=== PATIENT | male | born 1950 | race Hispanic/Latino ===

== ENCOUNTER → 2019-05-27 | Outpatient (CLI) | payer OTHER ==
[~2019-05-27] VITALS: Ht 170.2 cm; Wt 79.4 kg
[~2019-05-27] MED LIST: ASPI-1005 PO; ATOR40TA71 PO; CARV6.25 PO; CHOL200074 PO; CLOP75TA14 PO; FURO20TA4 PO; GLIP10TA9 PO; ISOS30TA6 PO; LISI10TA7 PO; LORA10TA7 PO; METF-444 PO; METF-446 PO; NITR100C9 PO; OMEP20CA4 PO; REGADENOSON 0.4 MG/5 ML PF SYG IVP ONE; REGADENOSON 0.4 MG/5 ML PF SYG IVP SCH; SITA100T12 PO; SPIR25TA6 PO; VITAMIN B12 PO
== END | disposition home or self-care (01) ==
LOC: SHCH 08:28
PROVIDERS: ATTEND Internal Medicine Cardiovascular Disease
DX: R07.9 Chest pain, unspecified (principal); I25.5 Ischemic cardiomyopathy
CPT/HCPCS: 78452; 93017; 96374; A9500 ×2; J2785

== ENCOUNTER 2020-08-03 09:54 | Inpatient (IN) | payer OTHER ==
[~2020-08-03] VITALS: Ht 172.7 cm; Wt 73.8 kg
[~2020-08-03 09:54] MED LIST changes: -REGADENOSON 0.4 MG/5 ML PF SYG IVP ONE; -REGADENOSON 0.4 MG/5 ML PF SYG IVP SCH
[2020-08-03] MEDS ORDERED: ASPIRIN 325 MG TABLET ONE (10:12)
[2020-08-03 10:52] LABS: BASOPHILS % (AUTO) 0.7 % (0.0-5.0); EOSINOPHILS % (AUTO) 6.3 % (0.0-8.0); HEMATOCRIT 32.7 % (42-54); LYMPHOCYTES % (AUTO) 17.4 % (21.0-51.0); MEAN CORPUSCULAR HEMOGLOBIN 33.4 pg (27.0-33.0); MEAN CORPUSCULAR HGB CONC 35.2 g/dL (32.0-36.0); MEAN CORPUSCULAR VOLUME 95.1 fL (79-99); MONOCYTES % (AUTO) 7.3 % (3.0-13.0); NEUTROPHILS % (AUTO) 68.2 % (40.0-77.0); PLATELET COUNT (AUTO) 185 K/uL (130-400); RED BLOOD CELL COUNT(AUTO) 3.44 MIL/uL (4.50-6.20); RED CELL DISTRIBUTION WIDTH 12.4 % (11.0-15.5)
[2020-08-03 11:10] LABS: INR 0.94 (0.85-1.15); PARTIAL THROMBOPLASTIN TIME 26.8 SEC (26.3-35.5); PROTHROMBIN TIME 10.2 SEC (9.6-11.6)
[2020-08-03 11:33] LABS: ALBUMIN 3.9 g/dL (3.5-5.0); BILIRUBIN,TOTAL 0.7 mg/dL (0.2-1.0); CREATININE 1.6 mg/dL (0.5-1.5); POTASSIUM 4.8 mmol/L (3.5-5.1); TOTAL PROTEIN, SERUM 7.8 g/dL (6.0-8.3)
[2020-08-03] MEDS ORDERED: NITROGLYCERIN 1GM/1 INCH PACKET TD ONE ×2 (11:49→20:34)
[2020-08-03] MEDS ORDERED: MORPHINE SULFATE 2 MG/ML 1ML SYG IVP PRN (13:45)
[2020-08-03] MEDS ORDERED: LOPERAMIDE 1 MG/7.5 ML UDCUP PO PRN (13:45)
[2020-08-03] MEDS ORDERED: LACTULOSE 20 GM/30 ML UDCUP PO PRN (13:45)
[2020-08-03] MEDS ORDERED: ONDANSETRON HCL 4 MG/2 ML VIAL IVP PRN (13:45)
[2020-08-03] MEDS ORDERED: ACETAMINOPHEN 325 MG TAB PO PRN (13:45)
[2020-08-03] MEDS: NITROGLYCERIN 1GM/1 INCH PACKET TD SCH ×2 (13:45→21:45)
[2020-08-03] MEDS ORDERED: ZOLPIDEM TARTRATE 5 MG TAB PO PRN (13:45)
[2020-08-03] MEDS ORDERED: DEXTROSE 50%-WATER 50 ML DISP.SYRIN IV PRN (13:45)
[2020-08-03] MEDS ORDERED: DIPHENHYDRAMINE HCL 25 MG CAPSULE PO PRN (13:45)
[2020-08-03] MEDS ORDERED: GLUCAGON 1MG KIT 1 MG ML IM PRN (13:45)
[2020-08-03 16:13] LABS: APPEARANCE,URINE Clear (CLEAR); BILIRUBIN,URINE Negative (NEGATIVE); COLOR,URINE Yellow (YELLOW); GLUCOSE, URINE (UA) Negative (NEGATIVE); KETONES,URINE Negative (NEGATIVE); LEUKOCYTE ESTERASE ,URINE Negative (NEGATIVE); NITRATE,URINE Negative (NEGATIVE); OCCULT BLOOD,URINE Negative (NEGATIVE); PH,URINE 5.5 (5.0-8.0); PROTEIN,URINE Negative (NEGATIVE); UROBILINOGEN,URINE 0.2 mg/dL (0.2-1.0)
[2020-08-03] MEDS: INSULIN HUMULIN R 100 UNIT/ML 3ML SQ SCH ×2 (16:30→21:00)
[2020-08-03] MEDS ORDERED: MORPHINE SULFATE 2 MG/ML 1ML SYG ONE (19:32)
[2020-08-03] MEDS ORDERED: FAMOTIDINE 20MG TAB 20 MG TAB ONE (20:26)
[2020-08-03] MEDS ORDERED: CARVEDILOL 3.125 MG TABLET PO ONE (20:26)
[2020-08-03] MEDS ORDERED: ENOXAPARIN SODIUM 40 MG/0.4 ML SYRINGE SQ ONE (20:34)
[2020-08-03] MEDS: FAMOTIDINE 20MG TAB 20 MG TAB PO SCH (21:00)
[2020-08-03] MEDS: ENOXAPARIN SODIUM 40 MG/0.4 ML SYRINGE SQ SCH (21:00)
[2020-08-03] MEDS ORDERED: CARVEDILOL 3.125 MG TABLET PO SCH (21:00)
[2020-08-04] VITALS (9 sets, daily range): BP systolic 103–163; BP diastolic 59–78
[2020-08-04] MEDS ORDERED: ASPI-1146 PO (00:40)
[2020-08-04] MEDS ORDERED: ONDA8TAB12 PO (00:40)
[2020-08-04] MEDS ORDERED: LOSA25TA41 PO (00:40)
[2020-08-04] MEDS ORDERED: FERR324T PO (00:40)
[2020-08-04 01:48] LABS: HEMATOCRIT 30.8 % (42-54); MEAN CORPUSCULAR HEMOGLOBIN 32.6 pg (27.0-33.0); MEAN CORPUSCULAR HGB CONC 34.1 g/dL (32.0-36.0); MEAN CORPUSCULAR VOLUME 95.7 fL (79-99); RED BLOOD CELL COUNT(AUTO) 3.22 MIL/uL (4.50-6.20); RED CELL DISTRIBUTION WIDTH 12.4 % (11.0-15.5); WHITE BLOOD COUNT (AUTO) 6.4 K/uL (4.8-10.8)
[2020-08-04 02:19] LABS: ALBUMIN 3.5 g/dL (3.5-5.0); BILIRUBIN,TOTAL 0.7 mg/dL (0.2-1.0); CREATININE 1.4 mg/dL (0.5-1.5); MAGNESIUM 1.5 mg/dL (1.80-2.40); PHOSPHORUS 3.8 mg/dL (2.5-4.9); POTASSIUM 4.4 mmol/L (3.5-5.1); TOTAL PROTEIN, SERUM 7.4 g/dL (6.0-8.3)
[2020-08-04] MEDS ORDERED: MAGNESIUM 2GM PREMIX 50ML 50 ML IV PRN (03:15)
[2020-08-04] MEDS: MAGNESIUM 2GM PREMIX 50ML 50 ML IV PRN (03:18)
[2020-08-04] MEDS: NITROGLYCERIN 1GM/1 INCH PACKET TD SCH ×3 (03:54→20:59)
[2020-08-04] MEDS: INSULIN HUMULIN R 100 UNIT/ML 3ML SQ SCH ×4 (06:10→21:00)
[2020-08-04] MEDS: FAMOTIDINE 20MG TAB 20 MG TAB PO SCH ×2 (08:56→20:58)
[2020-08-04] MEDS: ISOSORBIDE MONO 30MG TAB SR PO SCH (08:56)
[2020-08-04] MEDS: SPIRONOLACTONE 25 MG TAB PO SCH (08:56)
[2020-08-04] MEDS: ASPIRIN 81MG TAB.CHEW PO SCH (08:56)
[2020-08-04] MEDS: LOSARTAN 50 MG TABLET PO SCH (08:57)
[2020-08-04] MEDS: CYANOCOBALAMIN (VITAMIN B-12) 1,000 MCG TABLET PO SCH (08:57)
[2020-08-04] MEDS: ATORVASTATIN CALCIUM 40 MG TABLET PO SCH (08:57)
[2020-08-04] MEDS: CLOPIDOGREL BISULFATE 75 MG TAB PO SCH (08:57)
[2020-08-04] MEDS: CARVEDILOL 6.25 MG TABLET PO SCH ×2 (08:58→20:58)
[2020-08-04] MEDS: LISINOPRIL 10 MG TABLET PO SCH (08:58)
[2020-08-04] MEDS: ENOXAPARIN SODIUM 40 MG/0.4 ML SYRINGE SQ SCH ×2 (08:59→20:59)
--- NOTE | 2020-08-04 10:52 | NUR ---
DR. OWEN PER DR. OWEN PT WILL BE GOING FOR A STRESS TEST TOMORROW. PT WILL BE NPO TOMORROW AFTER MIDNIGHT
[2020-08-04] MEDS: FERROUS GLUCONATE 325 MG TABLET PO SCH (12:02)
[2020-08-04] MEDS: FUROSEMIDE 20 MG TABLET PO SCH (12:02)
--- NOTE | 2020-08-04 17:03 | NUR ---
RAE NOTE/IA UNABLE TO MEET WITH PATIENT, NEXT OF KIN CALLED, SERGE WELLS. PER DAUGHTER, HAS POA AND WILL BRING FORMS, PATIENT LIVES WITH SPOUSE, IS INDEPENDENT WITH ADLS, NO USE OF DME, AND FEELS SAFE FOR HIM TO RETURN ONCE DISCHARGED. Addendum: 08/04/20 at 1705 by SONI GRANDA RN CM Amended: Links added.
--- NOTE | 2020-08-04 17:05 | NUR ---
ADVANCE DIRECTIVES/POA DAUGHTER, SERGE, BROUGHT MEDICAL POWER OR SALVAGE ENGINEERING TECHNICIAN PAPERWORK. FLAGGED IN CHART, PRIMARY NURSE, JOVANNY MCKINLEY, MADE AWARE.
--- NOTE | 2020-08-04 19:25 | NUR ---
SUSAN DRAPER TAKEN DOWN BY [employer] FOR SUSAN. Addendum: 08/05/20 at 0128 by MARY JANE OJEDA RN RN Amended: Links added.
[2020-08-04] MEDS: **HM** VIT D3 2000 UNITS PO SCH (21:00)
--- NOTE | 2020-08-04 21:00 | NUR ---
MEDS SHIFT ASSESSMENT DONE, PLEASE REFER TO CHART. DUE MEDS ADMINISTERED, TOLERATED WELL. CALL LIGHT WITHIN REACH. WILL MONITOR PT. Addendum: 08/05/20 at 0138 by MARY JANE OJEDA RN RN Amended: Links added.
--- NOTE | 2020-08-05 02:00 | NUR ---
ROUNDS PT AWAKENED WHEN [employer] ENTERED ROOM. DENIES ANY CONCERNS AT THIS TIME. NO DISTRESS NOTED. KEPT COMFORTABLE IN BED. CALL LIGHT WITHIN REACH. WILL MONITOR PT.
[2020-08-05 03:45] VITALS: BP 104/58
[2020-08-05] MEDS: NITROGLYCERIN 1GM/1 INCH PACKET TD SCH ×3 (05:06→21:45)
--- NOTE | 2020-08-05 05:10 | NUR ---
MEDS PT ALREADY AWAKE. NO CONCERNS VERBALIZED. DUE MEDS ADMINISTERED. KEPT RESTED AND COMFORTABLE IN BED. FOR MORE CARE.
[2020-08-05] MEDS: INSULIN HUMULIN R 100 UNIT/ML 3ML SQ SCH ×4 (05:43→20:17)
[2020-08-05] MEDS: MAGNESIUM 2GM PREMIX 50ML 50 ML IV PRN (06:22)
[2020-08-05 08:17] VITALS: BP 125/62
[2020-08-05] MEDS: ASPIRIN 81MG TAB.CHEW PO SCH (08:33)
[2020-08-05] MEDS: FAMOTIDINE 20MG TAB 20 MG TAB PO SCH ×2 (08:33→20:15)
[2020-08-05] MEDS: CLOPIDOGREL BISULFATE 75 MG TAB PO SCH (08:33)
[2020-08-05] MEDS: CARVEDILOL 6.25 MG TABLET PO SCH ×2 (08:34→20:16)
[2020-08-05] MEDS: ATORVASTATIN CALCIUM 40 MG TABLET PO SCH (08:34)
[2020-08-05] MEDS: CYANOCOBALAMIN (VITAMIN B-12) 1,000 MCG TABLET PO SCH (08:34)
[2020-08-05] MEDS: FUROSEMIDE 20 MG TABLET PO SCH (08:35)
[2020-08-05] MEDS: SPIRONOLACTONE 25 MG TAB PO SCH (08:38)
[2020-08-05] MEDS: LISINOPRIL 10 MG TABLET PO SCH (08:38)
[2020-08-05] MEDS: ISOSORBIDE MONO 30MG TAB SR PO SCH (08:39)
[2020-08-05] MEDS: LOSARTAN 50 MG TABLET PO SCH (08:39)
[2020-08-05] MEDS: ENOXAPARIN SODIUM 40 MG/0.4 ML SYRINGE SQ SCH ×2 (10:12→20:16)
[2020-08-05] MEDS ORDERED: REGADENOSON 0.4 MG/5 ML PF SYG IVP SCH (10:30)
--- NOTE | 2020-08-05 10:37 | NUR ---
PER REPORT IN AM NURSE STATED LEXISCAN WAS DONE PT ATE HIS BREAKFAST THIS AM. LEXISCAN CAN'T BE DONE TODAY UNTIL TOMORROW.
[2020-08-05] MEDS: FERROUS GLUCONATE 325 MG TABLET PO SCH (11:55)
[2020-08-05 12:26] VITALS: BP 114/82
[2020-08-05 16:00] VITALS: BP 108/59
--- NOTE | 2020-08-05 19:15 | NUR ---
REPORT RECEIVED REPORT FROM JOVANNY MCKINLEY AND GUN STOCK MAKER WAS INFORMED THAT LEXISCAN WAS NOT DONE LAST NIGHT BUT SINCE PT ATE BREAKFAST, TEST WILL BE DONE IN AM. INFORMED JOVANNY THAT PT WAS TAKEN DOWN FROM [facility] LAST NIGHT AND WHEN TECH BROUGHT PT UP GUN STOCK MAKER WAS INFORMED THAT TEST WAS DONE. PER TEST RESULTS IN THE COMPUTER, IT WAS LABELED TAKEN. NOBODY FROM THE LEXISCAN DEPARTMENT INFORMED GUN STOCK MAKER THAT LEXISCAN WAS PARTIALLY DONE.
[2020-08-05] MEDS ORDERED: MAG HYDROX/AL HYDROX/SIMETH ES 30 ML SUSP UDCUP PO PRN (19:30)
[2020-08-05] MEDS ORDERED: MAG HYDROX/AL HYDROX/SIMETH ES 30 ML SUSP UDCUP PO SCH (19:30)
[2020-08-05 20:02] VITALS: BP 149/74
[2020-08-05] MEDS: **HM** VIT D3 2000 UNITS PO SCH (20:17)
--- NOTE | 2020-08-05 20:20 | NUR ---
MEDS SHIFT ASSESSMENT DONE, PLEASE REFER TO CHART. DUE MEDS ADMINISTERED, TOLERATED WELL. INSTRUCTED TO BE NPO FOR SUSAN TOMORROW. VERBALIZES UNDERSTANDING. KEPT RESTED AND COMFORTABLE IN BED. CALL LIGHT WITHIN REACH. WILL MONITOR PT. Addendum: 08/05/20 at 2210 by MARY JANE OJEDA RN RN Amended: Links added.
--- NOTE | 2020-08-05 21:45 | NUR ---
MEDS AWAKENED PT FOR DUE MEDS. NO COMPLAINTS VERBALIZED. KEPT COMFORTABLE. ENCOURAGED TO REST AND SLEEP. WILL CONTINUE TO MONITOR.
[2020-08-06 00:04] VITALS: BP 133/65
--- NOTE | 2020-08-06 02:00 | NUR ---
ROUNDS PT FAIRLY ASLEEP. NO DISTRESS NOTED. KEPT UNDISTURBED FOR NOW. KEPT NPO. WILL MONITOR PT. CALL LIGHT WITHIN REACH.
[2020-08-06 04:04] VITALS: BP 137/64
[2020-08-06] MEDS: NITROGLYCERIN 1GM/1 INCH PACKET TD SCH ×2 (05:25→14:11)
--- NOTE | 2020-08-06 05:28 | NUR ---
MEDS PT ALREADY AWAKE, NO DISTRESS NOTED. NO COMPLAINTS VERBALIZED. DUE MEDS ADMINISTERED. KEPT NPO FOR LEXISCAN TODAY. FOR MORE CARE.
[2020-08-06] MEDS: INSULIN HUMULIN R 100 UNIT/ML 3ML SQ SCH ×3 (05:52→16:58)
[2020-08-06 06:10] LABS: BASOPHILS % (AUTO) 0.7 % (0.0-5.0); EOSINOPHILS % (AUTO) 7.4 % (0.0-8.0); HEMATOCRIT 29.5 % (42-54); LYMPHOCYTES % (AUTO) 18.4 % (21.0-51.0); MEAN CORPUSCULAR HEMOGLOBIN 32.8 pg (27.0-33.0); MEAN CORPUSCULAR HGB CONC 34.6 g/dL (32.0-36.0); MEAN CORPUSCULAR VOLUME 94.9 fL (79-99); MONOCYTES % (AUTO) 9.1 % (3.0-13.0); NEUTROPHILS % (AUTO) 64.1 % (40.0-77.0); PLATELET COUNT (AUTO) 153 K/uL (130-400); RED BLOOD CELL COUNT(AUTO) 3.11 MIL/uL (4.50-6.20); RED CELL DISTRIBUTION WIDTH 12.4 % (11.0-15.5); WHITE BLOOD COUNT (AUTO) 6.7 K/uL (4.8-10.8)
[2020-08-06 06:20] LABS: PHOSPHORUS 3.4 mg/dL (2.5-4.9)
[2020-08-06 08:33] VITALS: BP 133/67
[2020-08-06] MEDS: CYANOCOBALAMIN (VITAMIN B-12) 1,000 MCG TABLET PO SCH (08:47)
[2020-08-06] MEDS: SPIRONOLACTONE 25 MG TAB PO SCH (08:47)
[2020-08-06] MEDS: ATORVASTATIN CALCIUM 40 MG TABLET PO SCH (08:47)
[2020-08-06] MEDS: CLOPIDOGREL BISULFATE 75 MG TAB PO SCH (08:47)
[2020-08-06] MEDS: ISOSORBIDE MONO 30MG TAB SR PO SCH (08:47)
[2020-08-06] MEDS: FAMOTIDINE 20MG TAB 20 MG TAB PO SCH (08:48)
[2020-08-06] MEDS: FUROSEMIDE 20 MG TABLET PO SCH (08:49)
[2020-08-06] MEDS: LISINOPRIL 10 MG TABLET PO SCH (08:49)
[2020-08-06] MEDS: LOSARTAN 50 MG TABLET PO SCH (08:49)
[2020-08-06] MEDS: CARVEDILOL 6.25 MG TABLET PO SCH (08:50)
[2020-08-06] MEDS: ENOXAPARIN SODIUM 40 MG/0.4 ML SYRINGE SQ SCH (08:50)
[2020-08-06] MEDS: ASPIRIN 81MG TAB.CHEW PO SCH (08:51)
--- NOTE | 2020-08-06 09:00 | NUR ---
DR. OJEDA PAGED
[2020-08-06] MEDS ORDERED: NITROGLYCERIN 0.4 MG SL TAB SL ONE (09:03)
--- NOTE | 2020-08-06 09:05 | NUR ---
DR. OWEN ORDERS GIVE SL NITRO 0.4MG FIST DOSE GIVEN
--- NOTE | 2020-08-06 09:10 | NUR ---
2ND NITRO GIVEN CP AT A 5 OUT 10
[2020-08-06] MEDS ORDERED: NITROGLYCERIN 0.4 MG SL TAB SL PRN (09:15)
--- NOTE | 2020-08-06 09:15 | NUR ---
NITRO NO MORE CP
--- NOTE | 2020-08-06 10:30 | NUR ---
PT LEFT FOR LEXISCAN
[2020-08-06] MEDS: FERROUS GLUCONATE 325 MG TABLET PO SCH (12:00)
--- NOTE | 2020-08-06 12:00 | NUR ---
PT STILL IN PROCEDURE OF SUSAN
--- NOTE | 2020-08-06 13:30 | NUR ---
PT BACK FROM [facility]
--- NOTE | 2020-08-06 14:21 | NUR ---
DR OWEN OK TO RESUME PERVIOUS DIET
[2020-08-06 16:33] VITALS: BP 123/64
--- NOTE | 2020-08-06 18:42 | NUR ---
D/C PT IS LEAVING A/A X 3 IN PVT CAR, WITH NO CHEST PAIN, VS STABLE. D/C ORDERS GIVEN TO DAUGHTER SERGE. PT IS TO F/U IN 1-[address] PORTILLO.
== END 2020-08-06 18:50 | disposition home or self-care (01) | DRG 303 ==
LOC: EDH 09:54 → EDHIP 12:00 → OBSVTOIN 12:00 → 3DH 08-04 00:28
PROVIDERS: ADMIT Internal Medicine; ATTEND Internal Medicine
DX: I25.118 Atherosclerotic heart disease of native coronary artery with other forms of angina pectoris (principal); I12.9 Hypertensive chronic kidney disease with stage 1 through stage 4 chronic kidney disease, or unspecified chronic kidney disease; I25.5 Ischemic cardiomyopathy; E11.22 Type 2 diabetes mellitus with diabetic chronic kidney disease; N18.3 Chronic kidney disease, stage 3 (moderate); I45.10 Unspecified right bundle-branch block; E78.5 Hyperlipidemia, unspecified; D64.9 Anemia, unspecified; Z88.2 Allergy status to sulfonamides; Z88.8 Allergy status to other drugs, medicaments and biological substances; Z79.82 Long term (current) use of aspirin; Z95.810 Presence of automatic (implantable) cardiac defibrillator; Z95.5 Presence of coronary angioplasty implant and graft; Z85.048 Personal history of other malignant neoplasm of rectum, rectosigmoid junction, and anus; Z92.21 Personal history of antineoplastic chemotherapy; Z87.891 Personal history of nicotine dependence; I25.2 Old myocardial infarction; Z79.84 Long term (current) use of oral hypoglycemic drugs; Z79.899 Other long term (current) drug therapy; Z82.49 Family history of ischemic heart disease and other diseases of the circulatory system
CPT/HCPCS: 36415; 71045; 78452; 80053; 81003; 82550; 82948; 83735; 83880; 84100; 84484; 85025; 85027; 85610; 85730; 93005; 93017; 96374; A9500; G0378; J1650; J1815; J2785; J3475

== ENCOUNTER → 2020-09-04 | Outpatient (CLI) | payer OTHER ==
[~2020-09-04] MED LIST changes: +ASPI-1146 PO; +FERR324T PO; -LORA10TA7 PO; +LOSA25TA41 PO; -METF-444 PO; -NITR100C9 PO; +ONDA8TAB12 PO
== END | disposition home or self-care (01) ==
LOC: SHCH 08:26
PROVIDERS: ATTEND Internal Medicine Cardiovascular Disease
DX: I10 Essential (primary) hypertension (principal); R07.9 Chest pain, unspecified
CPT/HCPCS: 93306; 93356

== ENCOUNTER → 2022-02-25 | Outpatient (CLI) | payer OTHER ==
[~2022-02-25] MED LIST changes: +ALBUMIN (HUMAN) 25% 200 ML IV ONE; -ISOS30TA6 PO; +ISOS30TA92 PO; +LIDOCAINE HCL MPF 1% 5ML VIAL ONE; +LISI10TA24 PO; -LISI10TA7 PO
[2022-02-25 10:23] LABS: INR 1.08 (0.85-1.15); PROTHROMBIN TIME 11.7 SEC (9.6-11.6)
[2022-02-25 10:24] LABS: PARTIAL THROMBOPLASTIN TIME 29.2 SEC (26.3-35.5)
[2022-02-25 13:30] LABS: APPEARANCE BODY FLUID CLEAR (CLEAR); BODY FLUID WBC 415 /cu. mm.; COLOR,BODY FLUID YELLOW (LT YELLOW); SPECIMENTYPE,BODY FLUID ASCITES; TOTAL VOLUME,BODY FLUID 5000 mL
[2022-02-25 13:31] LABS: BODY FLUID RBC 33 /cu. mm.
[2022-02-25 14:16] LABS: BF EOSINOPHIL 5 %; BF LYMPHOCYTE 43 %; BF MESOTHELIAL 38 %; BF MONOCYTE 10 %
== END | disposition home or self-care (01) ==
LOC: RAH 09:25
PROVIDERS: ATTEND Family Medicine
DX: R18.8 Other ascites (principal); I10 Essential (primary) hypertension; C78.7 Secondary malignant neoplasm of liver and intrahepatic bile duct; Z79.01 Long term (current) use of anticoagulants
CPT/HCPCS: 36415; 49083; 85610; 85730; 87071; 87205; 89051; C1729; J3490 ×2; P9046

== ENCOUNTER 2022-03-20 12:50 | Emergency (ER) | payer OTHER ==
[~2022-03-20] VITALS: Ht 167.6 cm; Wt 86.2 kg
[~2022-03-20 12:50] MED LIST changes: -ALBUMIN (HUMAN) 25% 200 ML IV ONE; -LIDOCAINE HCL MPF 1% 5ML VIAL ONE
[2022-03-20 13:07] LABS: BASOPHILS % (AUTO) 0.6 % (0.0-5.0); EOSINOPHILS % (AUTO) 2.9 % (0.0-8.0); HEMATOCRIT 32.1 % (42-54); LYMPHOCYTES % (AUTO) 7.1 % (21.0-51.0); MEAN CORPUSCULAR HEMOGLOBIN 30.8 pg (27.0-33.0); MEAN CORPUSCULAR VOLUME 93.3 fL (79-99); MONOCYTES % (AUTO) 11.3 % (3.0-13.0); NEUTROPHILS % (AUTO) 77.5 % (40.0-77.0); PLATELET COUNT (AUTO) 143 K/uL (130-400); RED BLOOD CELL COUNT(AUTO) 3.44 MIL/uL (4.50-6.20); RED CELL DISTRIBUTION WIDTH 19.9 % (11.0-15.5); WHITE BLOOD COUNT (AUTO) 6.9 K/uL (4.8-10.8)
[2022-03-20 13:16] LABS: CREATININE 3.7 mg/dL (0.5-1.5); POTASSIUM 5.3 mmol/L (3.5-5.1)
[2022-03-20 13:20] LABS: ALBUMIN 1.5 g/dL (3.5-5.0); BILIRUBIN,TOTAL 1.1 mg/dL (0.2-1.0); TOTAL PROTEIN, SERUM 7.8 g/dL (6.0-8.3)
[2022-03-20 13:45] LABS: B-TYPE NATRIURETIC PEPTIDE 133 pg/mL (0-100)
[2022-03-20] MEDS ORDERED: ALBUMIN (HUMAN) 25% 200 ML IV ONE (15:13)
[2022-03-20] MEDS ORDERED: LIDOCAINE HCL MPF 1% 5ML VIAL ONE (15:14)
[2022-03-20 19:30] VITALS: BP 132/74
== END 2022-03-20 20:22 | disposition home or self-care (01) ==
LOC: EDH 12:50
DX: R18.8 Other ascites (principal); R14.0 Abdominal distension (gaseous); E11.9 Type 2 diabetes mellitus without complications; E78.00 Pure hypercholesterolemia, unspecified; Z88.2 Allergy status to sulfonamides; Z88.1 Allergy status to other antibiotic agents; Z79.899 Other long term (current) drug therapy; Z79.82 Long term (current) use of aspirin; Z79.84 Long term (current) use of oral hypoglycemic drugs; Z90.89 Acquired absence of other organs; Z98.890 Other specified postprocedural states; Z85.038 Personal history of other malignant neoplasm of large intestine; Z85.118 Personal history of other malignant neoplasm of bronchus and lung
CPT/HCPCS: 36415; 49083; 71045; 80053; 83880; 84484; 85025; 93005; 96365; 99285; C1729; J3490; P9046